=== PATIENT | female | born 1985 | race Caucasian/White ===

== ENCOUNTER 2020-05-23 09:47 | Emergency (ER) | payer SELFPAY ==
[~2020-05-23] VITALS: Ht 160 cm; Wt 63.6 kg
[2020-05-23 09:58] VITALS: Ht 160 cm; Wt 63.6 kg
[2020-05-23 10:37] LABS: BASOPHILS 0.3 % (0-2); EOSINOPHILS 1.8 % (0-7); IMMATURE GRANULOCYTES 0.4 % (0-5); LYMPHOCYTES 26.3 % (15-50); MCH 21.8 pg (26.0-34.0); MCHC 30.3 g/dL (31.0-37.0); MCV 71.9 fL (80.0-100.0); MEAN PLATELET VOLUME 8.4 fL (7.4-10.4); MONOCYTES 7.8 % (2-11); NEUTROPHILS 63.4 % (40-80); PLATELET COUNT 679 10x3/uL (130-400); RBC 4.59 10x6/uL (4.00-5.40); RDW 17.2 % (11.5-14.5); WBC 7.9 10x3/uL (4.8-10.8)
[2020-05-23 10:47] LABS: CALC OSMOLALITY 267 mosm/kg (275-300); CALCIUM 8.9 mg/dL (8.5-10.1); CARBON DIOXIDE 29.1 mmol/L (21.0-32.0); CHLORIDE - SERUM 101 mmol/L (98-107); CREATININE - SERUM 0.7 mg/dL (0.6-1.3); GLUCOSE 96 mg/dL (74-106); POTASSIUM - SERUM 4.1 mmol/L (3.5-5.1); SODIUM 135 mmol/L (136-145); UREA NITROGEN 7 mg/dL (7-18); eGFR NON AFRICAN AMERICAN > 90 mL/min (90-120)
[2020-05-23 11:00] LABS: ALBUMIN 2.5 g/dL (3.4-5.0); ALKALINE PHOSPHATASE 86 U/L (30-120); ALT (SGPT) 9 U/L (10-68); AMYLASE - SERUM 37 U/L (25-115); BILIRUBIN - TOTAL 0.13 mg/dL (0.2-1.3); LIPASE 93 U/L (73-393); PROTEIN - SERUM 7.8 g/dL (6.4-8.2); TROPONIN-I < 0.017 ng/mL (0.000-0.060)
[2020-05-23 11:19] LABS: HCG SERUM NEGATIVE (NEGATIVE)
[2020-05-23 12:06] LABS: HCG URINE NEGATIVE (NEGATIVE)
[2020-05-23 12:08] LABS: BILIRUBIN NEGATIVE (NEGATIVE); GLUCOSE NEGATIVE (NEGATIVE); KETONE NEGATIVE (NEGATIVE); NITRITE NEGATIVE (NEGATIVE); SPECIFIC GRAVITY 1.005 (1.005-1.020); UROBILINOGEN NORMAL (NORMAL)
[2020-05-23 12:18] LABS: BACTERIA FEW /hpf (NEGATIVE); RED CELLS - URINE NONE SEEN /hpf (0-5)
[2020-05-23 12:19] LABS: EPITHELIAL CELLS OCC /hpf (0-5)
[2020-05-23] MEDS ORDERED: MACROBID100 MG PO (12:58)
[2020-05-23] MEDS ORDERED: KEFLEX500 MG PO (12:58)
[2020-05-23 13:15] VITALS: BP 92/46
== END 2020-05-23 13:15 | disposition home or self-care (01) ==
LOC: D.ER 09:47
PROVIDERS: Family Medicine
DX: R10.31 Right lower quadrant pain (principal); N39.0 Urinary tract infection, site not specified